=== PATIENT | female | born 1975 | race Caucasian/White ===

== ENCOUNTER → 2024-01-16 13:13 | Outpatient (REF) | payer OTHER, SELFPAY | LOC: HWWDC 13:13 | PROVIDERS: ATTENDING PHYSICIAN Obstetrics & Gynecology Gynecology; FAMILY PHYSICIAN Internal Medicine | DX: Z30.431 Encounter for routine checking of intrauterine contraceptive device (principal); Z12.31 Encounter for screening mammogram for malignant neoplasm of breast | CPT/HCPCS: 76830; 76856; 77063; 77067 ==

== ENCOUNTER → 2024-05-29 08:05 | Outpatient (REF) | payer OTHER, SELFPAY ==
[2024-05-29 09:09] LABS: % Basophils 0.8 % (0-2); % Eosinophils 3.2 % (0-6); % Immature Granulocytes 0.2 % (0-0.5); % Neutrophils 60.8 % (42.2-75.2); Absolute Eosinophils 0.2 10^3/uL (0-0.7); Absolute Lymphocytes 1.2 10^3/uL (1.2-3.4); Absolute Monocytes 0.6 10^3/uL (0.1-0.6); Absolute Neutrophils 3.2 10^3/uL (1.4-6.5); Hemoglobin 15.1 g/dL (12.0-16.0); Mean Corp Hgb Conc. 34.3 g/dL (33.0-37.0); Mean Corpuscular Hgb 30.3 pg (27.0-31.0); Mean Corpuscular Volume 88.2 fL (81.0-99.0); Nucleated Red Blood Cells % 0 %; Platelet Count 199 10^3/uL (130-400); Red Blood Cell Count 4.99 10^6/uL (4.20-5.40); Red Cell Dist. Width 12.7 % (11.5-14.5); White Blood Cell Count 5.3 10^3/uL (4.8-10.8)
[2024-05-29 09:20] LABS: ALT (SGPT) 20 U/L (0-35); AST (SGOT) 23 U/L (14-36); Albumin 4.9 g/dl (3.5-5.0); Alkaline Phosphatase 46 U/L (38-126); Blood Urea Nitrogen 21 mg/dl (7-17); Calcium 9.4 mg/dl (8.4-10.2); Carbon Dioxide 20 mmol/L (22-30); Chloride 108 mmol/L (98-107); Glucose 84 mg/dl (70-99); Potassium 4.3 mmol/L (3.5-5.1); Sodium 140 mmol/L (135-145); Total Bilirubin 0.8 mg/dl (0.2-1.3); Total Protein 7.4 g/dl (6.3-8.2); eGFR 55.84
[2024-05-29 09:37] LABS: Free T4 1.06 ng/dl (0.78-2.19); Vitamin D, 25-OH*** 40.6 ng/mL (30-80)
[2024-05-29 09:40] LABS: FSH 10.5 mIU/ml; Luteinizing Hormone 6.25 mIU/ml
[2024-05-29 09:50] LABS: Cortisol, Random 10.2 ug/dl; TSH 1.88 uIU/ml (0.47-4.68)
[2024-05-29 10:10] LABS: Vitamin B12 714 pg/ml (239-931)
[2024-05-30 22:30] LABS: Insulin, Random 10 uIU/mL
[2024-05-31 07:40] LABS: DHEA Sulfate 76 ug/dL (35-256)
== END ==
LOC: REG 08:05
PROVIDERS: ATTENDING PHYSICIAN Obstetrics & Gynecology Gynecology; FAMILY PHYSICIAN Internal Medicine
DX: R63.5 Abnormal weight gain (principal); E28.2 Polycystic ovarian syndrome; N95.9 Unspecified menopausal and perimenopausal disorder
CPT/HCPCS: 36415; 80053; 82306; 82533; 82607; 82627; 83001; 83002; 83036; 83525; 84270; 84402; 84403; 84439; 84443; 85025